=== PATIENT | female | born 1960 | race Caucasian/White ===

== ENCOUNTER 2016-10-29 06:14 | Day surgery (SDC) | payer BC ==
--- NOTE | 2016-10-28 12:05 | HP ---
DATE OF ADMISSION: CHIEF COMPLAINT: Right shoulder pain. 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 She notes she caught her mother while she was falling pulling her right shoulder. She has had pain with overhead use and at night since. She has tried previous multiple injections in addition to therapy and medications with only partial temporary relief. She notes the pain does significantly limit her. PAST MEDICAL HISTORY: Significant for reflux disease and arthritis. PAST SURGICAL HISTORY: Significant for hysterectomy, cholecystectomy. CURRENT MEDICATIONS: 1. Adipex. 2. Albuterol. 3. Ambien. 4. Celebrex. 5. Combivent. 6. Tramadol. She denies drug allergies. FAMILY HISTORY: Significant for cancer. SOCIAL HISTORY: Negative for current tobacco or alcohol use. Sixteen-point review of systems otherwise reviewed and is noncontributory. On examination, the patient is approximately 5 feet 1 inch, 150 pounds of mesomorphic habitus. HEENT exam is nonfocal. Neck is supple. On examination of her right shoulder, she is tender about the anterior subacromial space. Active range of motion, forward elevation 150 degrees, external rotation with the arm at side 60 degrees, internal rotation is to T12. She has mild subacromial crepitus. Motor strength is 5 minus over 5 for abduction and external rotation. Chow, Neer and speed tests are positive. Her distal neurovascular exam appears to be intact in the right upper extremity. AP and scapular outlet views of the right shoulder obtained in the office show a type II acromion in addition to diminished humeral head to acromial distance. MRI report shows evidence of a supraspinatus tendinosis, possible partial-thickness tear in addition to biceps tendinosis and a possible partial thickness tear. Anterior labral cysts were also noted. IMPRESSION: 1. Right shoulder impingement/rotator cuff tendinosis with possible partial-thickness tear. 2. Right shoulder bicipital tendinosis with possible partial tear. RECOMMENDATIONS: I talked to the patient at length regarding her treatment options. At this point, she is quite symptomatic despite conservative measures. After thorough discussion, she opts to proceed with surgery. We will plan to proceed with arthroscopic evaluation with probable subacromial decompression with rotator cuff debridement versus repair in addition to possible biceps debridement. Risks and benefits were discussed at length in layman's terms. We will likely perform that as an outpatient procedure. CLARA
[2016-10-28 12:29] VITALS: BMI 34.0
[~2016-10-29 06:14] MED LIST: DEXAMETHASONE SOD PHOSPHATE 10 MG/ML 1 ML VIAL IV ONE; LACTATED RINGERS 1,000 ML IV SCH; MIDAZOLAM 2 MG/2 ML VIAL IV PRN; ONDANSETRON 4 MG/2 ML VIAL IVP ONE; SCOPOLAMINE 1.5MG/72HR PATCH TRANSDERM ONE; ceFAZolin 2 GM in SODIUM CHLORIDE 0.9% 100 ML IVPB ONE; fentaNYL (PF) 50 MCG/ML 2 ML AMP IV PRN
[2016-10-29 06:32] VITALS: RESP 16
[2016-10-29] MEDS ORDERED: LIDOCAINE 1% 20 ML VIAL (10MG/ML) FOR IV START INTRADERMA ONE (06:32)
[2016-10-29] MEDS ORDERED: LIDOCAINE 1% INJ 10MG/ML (20 ML MDV) ONE (08:02)
[2016-10-29] MEDS ORDERED: MIDAZOLAM 2 MG/2 ML VIAL ONE (08:02)
[2016-10-29] MEDS ORDERED: ROCURONIUM BROMIDE 10 MG/ML 10 ML VIAL IV ONE (08:02)
[2016-10-29] MEDS ORDERED: ePHEDrine 50 MG/ML 1 ML AMP ONE (08:02)
[2016-10-29] MEDS ORDERED: LIDOCAINE 2%-EPI 1:100,000 20 ML VIAL ONE (08:02)
[2016-10-29] MEDS ORDERED: fentaNYL (PF) 50 MCG/ML 2 ML AMP ONE (08:02)
[2016-10-29] MEDS ORDERED: NEOSTIGMINE 1 MG/ML 10 ML VIAL ONE (08:02)
[2016-10-29] MEDS ORDERED: PROPOFOL 10 MG/ML 20 ML VIAL IV ONE (08:02)
[2016-10-29] MEDS ORDERED: GLYCOPYRROLATE 0.2 MG/ML 2 ML VIAL ONE (08:02)
[2016-10-29] MEDS ORDERED: BUPIVACAINE (PF) 0.5% 30 ML VIAL ONE (08:02)
[2016-10-29] MEDS ORDERED: SUCCINYLCHOLINE CHLORIDE 100 MG/5 ML SYR IV ONE (08:02)
[2016-10-29] MEDS ORDERED: EPINEPHrine (PF) 1 ML in SODIUM CHLORIDE 0.9% IRRIGATIO 3,000 ML IRRIGATION ONE ×8 (08:36)
--- NOTE | 2016-10-29 09:11 | P.OP ---
Date of Procedure: 10/29/16 Preoperative Diagnosis: Right shoulder impingement syndrome/rotator cuff tendinitis Postoperative Diagnosis: Partial thickness bursal surface tear right rotator cuff/type I superior labral tear Procedure(s) Performed: Right shoulder arthroscopic subacromial decompression/rotator cuff debridement/ superior labral debridement Anesthesia: rasta ADAMS Surgeon: Chuck Kline Will Call Clerk #1: Francisco Gerard Estimated Blood Loss (ml): 5 Pathology: none sent Condition: stable Disposition: PACU Indications for Procedure: The patient's a 56-year-old female who presents with progressive right shoulder pain for the past couple of years after a previous injury. She did try conservative measures with persistent pain and limitation. A discussion of the risks and benefits of continued conservative measures versus operative intervention was made with the patient. She opted to proceed with surgery. Operative risks to include infection, neurovascular injury, development of blood clots, possible postoperative stiffness, possible persistence of symptoms and need for subsequent procedures was discussed. Informed consent was obtained. Operative Findings: As below Description of Procedure: The patient was brought to the operating room, and after induction of general anesthesia was placed in a beachchair position. The bony prominences were appropriately padded. I examined the right shoulder. There was no gross block to passive motion. There was no gross glenohumeral instability. The right upper extremity was prepped and draped in normal fashion. The bony outlines of the acromion, distal clavicle, and coracoid process were outlined with a skin marker. The glenohumeral joint was inflated with 50 mL of saline utilizing a spinal needle from posterior approach. A posterior portal was made through a 5 mm skin incision 1 cm medial and inferior to the posterior lateral border of the acromion. A blunt trocar was used to easily into the joint. Diagnostic arthroscopy was performed. An anterior portal was made just lateral to the coracoid process through a 5 mm skin incision entering the joint above the subscapularis tendon. The anterior labrum appeared intact. The subscapularis appeared intact. On inspection of the long head of the biceps, there was some mild fraying however no significant tearing. There was a type I tear involving the superior labrum. This was debrided back to stable base with a motorized shaver. The biceps anchor appeared stable. The rotator cuff was inspected from the articular surface. Appeared to be intact. The posterior labrum was intact. The inferior recess was inspected. The arthroscope was placed into the subacromial space. A lateral portal was made through a 5 mm skin incision 2 cm inferior to the anterior lateral border of the acromion. The soft tissue on the undersurface the acromion was debrided with motorized shaver and with electrocautery clearly defining the anterior medial and lateral borders as well as the distal clavicle. An anterior inferior acromioplasty is performed with a motorized dario starting anterolateral, then extending this posteriorly, then extending this medially. Is able to convert to a flat acromion. This is verified from the posterior lateral viewing portals. The coracoacromial ligament was detached from the anterior acromion with electrocautery. On inspection the rotator cuff, a partial thickness tear involving the anterior aspect the supraspinatus was noted. This involved less than 3 mm of the thickness. This was debrided back to stable base with a motorized shaver. Marked bursitis was noted in this was debrided as well. The arthroscope was then removed. The portals were closed with Steri-Strips. A sterile dressing was applied in addition to a shoulder brace. The patient was awoken from general anesthesia and transferred to the recovery room in good condition. Blood loss was estimated at 5 mL. No complications were incurred. Sponge and needle counts were correct at the end the case.
[2016-10-29 09:21] VITALS: TEMP 98.2
[2016-10-29] MEDS ORDERED: LACTATED RINGERS 1,000 ML IV ONE (10:06)
[2016-10-29 11:33] VITALS: BP 141/75; PULSE 72
== END 2016-10-29 12:00 | disposition home or self-care (01) ==
LOC: OR 06:14
PROVIDERS: ATTEND Orthopaedic Surgery
DX: S46.011A Strain of muscle(s) and tendon(s) of the rotator cuff of right shoulder, initial encounter (principal); S43.491A Other sprain of right shoulder joint, initial encounter; X58.XXXA Exposure to other specified factors, initial encounter; Z98.890 Other specified postprocedural states; Z79.899 Other long term (current) drug therapy; Z79.891 Long term (current) use of opiate analgesic
CPT/HCPCS: 64415; 29827; 29826; J2250; J1100; J2710; J0690; J2405; J0171; J2001; J3010; J0330; J2704

== ENCOUNTER → 2017-11-30 | Outpatient (CLI) | payer BC ==
[2017-11-30 10:14] LABS: Basophils % (A) 1 %; Eosinophils # (A) 0.2 k/uL (0-0.7); Eosinophils % (A) 3 %; HCT 42.5 % (34.0-46.0); HGB 14.1 gm/dL (11.4-16.0); Lymphocytes # (A) 1.7 k/uL (1.0-4.8); Lymphocytes % (A) 28 %; MCH 29.6 pg (25.0-35.0); MCHC 33.2 g/dL (31.0-37.0); MCV 89.2 fL (80.0-100.0); Mean Platelet Volume 6.7; Monocytes # (A) 0.2 k/uL (0-1.0); Monocytes % (A) 4 %; Neutrophils # (A) 3.9 k/uL (1.3-7.7); Neutrophils % (A) 63 %; Platelet Count 306 k/uL (150-450); RBC 4.77 m/uL (3.80-5.40); RDW 12.8 % (11.5-15.5); WBC 6.2 k/uL (3.8-10.6)
[2017-11-30 10:45] LABS: C Reactive Protein <5.0 mg/L (<10.0); Uric Acid 5.7 mg/dL (3.7-7.4)
[2017-11-30 11:18] LABS: Erythrocyte Sedimentation Rate 9 mm/hr (0-20)
[2017-11-30 17:40] LABS: Rheumatoid Factor 6 IU/mL (0-15)
[2017-12-02 11:10] LABS: HLA B27 NEGATIVE
== END | disposition home or self-care (01) ==
LOC: LABWHC1 09:26
PROVIDERS: ATTEND Orthopaedic Surgery
DX: M25.50 Pain in unspecified joint (principal)
CPT/HCPCS: 36415; 84550; 85025; 85652; 86038; 86140; 86431; 86812

== ENCOUNTER 2020-05-08 09:15 | Emergency (ER) | payer BC ==
[2020-05-08 09:24] VITALS: RESP 18
[2020-05-08] MEDS ORDERED: SODIUM CHLORIDE 0.9% 2,000 ML IV STA (10:12)
[2020-05-08] MEDS ORDERED: PANTOPRAZOLE 40 MG/10 ML VIAL IVP STA (10:12)
[2020-05-08] MEDS ORDERED: ONDANSETRON 4 MG/2 ML VIAL IVP STA (10:12)
[2020-05-08] MEDS ORDERED: KETOROLAC 15 MG/ML 1 ML VIAL IVP STA (10:14)
[2020-05-08 10:35] LABS: Basophils # (A) 0.1 k/uL (0-0.2); Basophils % (A) 1 %; Eosinophils # (A) 0.1 k/uL (0-0.7); Eosinophils % (A) 1 %; HGB 14.9 gm/dL (11.4-16.0); Lymphocytes # (A) 1.5 k/uL (1.0-4.8); Lymphocytes % (A) 27 %; MCHC 33.1 g/dL (31.0-37.0); MCV 93.4 fL (80.0-100.0); Mean Platelet Volume 7.3; Monocytes # (A) 0.3 k/uL (0-1.0); Monocytes % (A) 5 %; Neutrophils # (A) 3.7 k/uL (1.3-7.7); Neutrophils % (A) 65 %; Platelet Count 309 k/uL (150-450); RBC 4.82 m/uL (3.80-5.40); RDW 12.2 % (11.5-15.5); WBC 5.7 k/uL (3.8-10.6)
--- NOTE | 2020-05-08 10:46 | ED ---
Dizziness HPI - General Chief Complaint: Dizziness Stated Complaint: dizzy/nausea Time Seen by Provider: 05/08/20 09:46 Source: patient, family, RN notes reviewed, old records reviewed Mode of arrival: wheelchair Limitations: no limitations - History of Present Illness Initial Comments: Yudy is a 5-year-old female presents emergency room today with complaints of dizziness, room spinning and lightheadedness and nausea feeling for the past 3 days. She is complaining of some lower left abdominal pain which was related to chronic abdominal pain and hx of diverticulitis. She has poor chronic sided abdominal pain. Patient reports that she has had no recorded fevers or chills. MD Complaint: near syncope - Related Data Home Medications Medication Instructions Recorded Confirmed Bisoprolol-Hctz 10-6.25 mg [Ziac 1 tab PO DAILY 05/08/20 05/08/20 10-6.25 MG] Previous Rx's Medication Instructions Recorded Meclizine [Antivert] 25 mg PO BID #20 tab 05/08/20 Ondansetron Odt [Zofran Odt] 4 mg PO Q8HR PRN #12 tab 05/08/20 methylPREDNISolone Dose Pack 4 mg PO DIRECTED #21 package 05/08/20 [Medrol Dose Pack] Allergies Allergy/AdvReac Type Severity Reaction Status Date / Time morphine AdvReac Nausea & Verified 05/08/20 10:39 Vomiting Review of Systems ROS Statement: Those systems with pertinent positive or pertinent negative responses have been documented in the HPI. ROS Other: All systems not noted in ROS Statement are negative. Past Medical History Past Medical History: GERD/Reflux Additional Past Medical History / Comment(s): IN PAST TOLD HAD HIATAL HERNIA. plantar fascitis, diverticulitis History of Any Multi-Drug Resistant Organisms: None Reported Past Surgical History: Cholecystectomy, Hysterectomy, Tonsillectomy Additional Past Surgical History / Comment(s): REZA FOOT SURG 06/2015. COLONOSCOPY, EGD. Past Anesthesia/Blood Transfusion Reactions: No Reported Reaction Additional Past Anesthesia/Blood Transfusion Reaction / Comment(s): "arm was all bruised from electronic blood pressure machine" Past Psychological History: Anxiety Smoking Status: Never smoker Past Alcohol Use History: Occasional Past Drug Use History: None Reported - Past Family History Sister(s) Family Medical History: Cancer, CVA/TIA Mother Family Medical History: No Reported History General Exam - General Exam Comments Initial Comments: 59-year-old female. Limitations: no limitations General appearance: alert, in no apparent distress Head exam: Present: atraumatic, normocephalic, normal inspection Eye exam: Present: normal appearance, PERRL, EOMI, nystagmus (lateral gaze). Absent: scleral icterus, conjunctival injection, periorbital swelling ENT exam: Present: normal exam, mucous membranes moist Neck exam: Present: normal inspection. Absent: tenderness, meningismus, lymphadenopathy Respiratory exam: Present: normal lung sounds bilaterally. Absent: respiratory distress, wheezes, rales, rhonchi, stridor Cardiovascular Exam: Present: regular rate, normal rhythm, normal heart sounds. Absent: systolic murmur, diastolic murmur, rubs, gallop, clicks GI/Abdominal exam: Present: soft, tenderness (Tenderness or left-sided), normal bowel sounds. Absent: distended, guarding, rebound, rigid Extremities exam: Present: normal inspection, full ROM, normal capillary refill. Absent: tenderness, pedal edema, joint swelling, calf tenderness Back exam: Present: normal inspection Neurological exam: Present: alert, oriented X3, CN II-XII intact Psychiatric exam: Present: normal affect, normal mood Skin exam: Present: warm, dry, intact, normal color. Absent: rash Course Vital Signs 05/08/20 05/08/20 05/08/20 09:19 11:18 13:27 Temperature 98.3 F 98.1 F 98.4 F Pulse Rate 64 90 60 Respiratory 18 18 18 Rate Blood Pressure 181/74 169/75 151/73 O2 Sat by Pulse 99 98 99 Oximetry EKG Findings - EKG Comments: EKG Findings:: EKG shows normal sinus rhythm and will schedule for LVH. Cannot really transferred to determine. Abnormal EKG. Jugular rate of 60 bpm. Was 160 ms. She orthodox is 78 ms. QTC is 424 ms. Medical Decision Making - Medical Decision Making 5-year-old female presents emergency room today with complaints of dizziness, lightheaded feeling as well as her arms spinning. She also points of nausea. Patient is given IV fluids and nausea medication meclizine. She had a history of vertigo before. Patient had CT of the brain which showed low finding of low- lying cerebellar tonsils possible Chiari malformation. Discussed is to be acute cause of patient's vertigo. Discussed the importance of Lourdes maneuver and that her labs EKG were otherwise unremarkable. Patient be discharged at this time with nausea medicine Nadeem is able to ambulate without difficulty upon discharge. - Lab Data Result diagrams: 05/08/20 10:16 05/08/20 10:16 Lab Results 05/08/20 05/08/20 05/08/20 Range/Units 10:16 10:16 10:16 WBC 5.7 (3.8-10.6) k/uL RBC 4.82 (3.80-5.40) m/uL Hgb 14.9 (11.4-16.0) gm/dL Hct 45.0 (34.0-46.0) % MCV 93.4 (80.0-100.0) fL MCH 31.0 (25.0-35.0) pg MCHC 33.1 (31.0-37.0) g/dL RDW 12.2 (11.5-15.5) % Plt Count 309 (150-450) k/uL Neutrophils % 65 % Lymphocytes % 27 % Monocytes % 5 % Eosinophils % 1 % Basophils % 1 % Neutrophils # 3.7 (1.3-7.7) k/uL Lymphocytes # 1.5 (1.0-4.8) k/uL Monocytes # 0.3 (0-1.0) k/uL Eosinophils # 0.1 (0-0.7) k/uL Basophils # 0.1 (0-0.2) k/uL APTT (22.0-30.0) sec Sodium 140 (137-145) mmol/L Potassium 4.4 (3.5-5.1) mmol/L Chloride 103 (98-107) mmol/L Carbon Dioxide 27 (22-30) mmol/L Anion Gap 10 mmol/L BUN 19 H (7-17) mg/dL Creatinine 0.86 (0.52-1.04) mg/dL Est GFR (CKD-EPI)AfAm 86 (>60 ml/min/1.73 sqM) Est GFR (CKD-EPI)NonAf 74 (>60 ml/min/1.73 sqM) Glucose 114 H (74-99) mg/dL Plasma Lactic Acid Lisandro (0.7-2.0) mmol/L Calcium 9.8 (8.4-10.2) mg/dL Total Bilirubin 0.7 (0.2-1.3) mg/dL AST 25 (14-36) U/L ALT 15 (4-34) U/L Alkaline Phosphatase 79 (38-126) U/L Troponin I (0.000-0.034) ng/mL Total Protein 7.9 (6.3-8.2) g/dL Albumin 4.9 (3.5-5.0) g/dL Amylase 52 (30-110) U/L Lipase 68 (23-300) U/L Urine Color Yellow Urine Appearance Cloudy H (Clear) Urine pH 6.5 (5.0-8.0) Ur Specific Tok 1.026 (1.001-1.035) Urine Protein Trace H (Negative) Urine Glucose (UA) Negative (Negative) Urine Ketones 1+ H (Negative) Urine Blood Negative (Negative) Urine Nitrite Negative (Negative) Urine Bilirubin Negative (Negative) Urine Urobilinogen <2.0 (<2.0) mg/dL Ur Leukocyte Esterase Large H (Negative) Urine RBC 2 (0-5) /hpf Urine WBC 15 H (0-5) /hpf Ur Squamous Epith Cells 8 H (0-4) /hpf Urine Bacteria Rare H (None) /hpf Urine Mucus Moderate H (None) /hpf 05/08/20 05/08/20 05/08/20 Range/Units 10:16 10:16 10:16 WBC (3.8-10.6) k/uL RBC (3.80-5.40) m/uL Hgb (11.4-16.0) gm/dL Hct (34.0-46.0) % MCV (80.0-100.0) fL MCH (25.0-35.0) pg MCHC (31.0-37.0) g/dL RDW (11.5-15.5) % Plt Count (150-450) k/uL Neutrophils % % Lymphocytes % % Monocytes % % Eosinophils % % Basophils % % Neutrophils # (1.3-7.7) k/uL Lymphocytes # (1.0-4.8) k/uL Monocytes # (0-1.0) k/uL Eosinophils # (0-0.7) k/uL Basophils # (0-0.2) k/uL APTT 25.1 (22.0-30.0) sec Sodium (137-145) mmol/L Potassium (3.5-5.1) mmol/L Chloride (98-107) mmol/L Carbon Dioxide (22-30) mmol/L Anion Gap mmol/L BUN (7-17) mg/dL Creatinine (0.52-1.04) mg/dL Est GFR (CKD-EPI)AfAm (>60 ml/min/1.73 sqM) Est GFR (CKD-EPI)NonAf (>60 ml/min/1.73 sqM) Glucose (74-99) mg/dL Plasma Lactic Acid Lisandro 1.5 (0.7-2.0) mmol/L Calcium (8.4-10.2) mg/dL Total Bilirubin (0.2-1.3) mg/dL AST (14-36) U/L ALT (4-34) U/L Alkaline Phosphatase (38-126) U/L Troponin I <0.012 (0.000-0.034) ng/mL Total Protein (6.3-8.2) g/dL Albumin (3.5-5.0) g/dL Amylase (30-110) U/L Lipase (23-300) U/L Urine Color Urine Appearance (Clear) Urine pH (5.0-8.0) Ur Specific Tok (1.001-1.035) Urine Protein (Negative) Urine Glucose (UA) (Negative) Urine Ketones (Negative) Urine Blood (Negative) Urine Nitrite (Negative) Urine Bilirubin (Negative) Urine Urobilinogen (<2.0) mg/dL Ur Leukocyte Esterase (Negative) Urine RBC (0-5) /hpf Urine WBC (0-5) /hpf Ur Squamous Epith Cells (0-4) /hpf Urine Bacteria (None) /hpf Urine Mucus (None) /hpf - Radiology Data Radiology results: report reviewed 4.5 mm right-sided cerebellar tonsillar ectopic as indeterminate between benign cerebellar tonsils are top area and Chiari I Curtis Patient. It would require further clinical correlation. No acute intracranial abnormality seen. Disposition Clinical Impression: Dizziness, Nausea, Vertigo Disposition: HOME SELF-CARE Condition: Good Instructions (If sedation given, give patient instructions): Vertigo (ED), Dizziness (ED) Additional Instructions: Please use medication as discussed. Please follow up with family doctor if symptoms have not improved over the next two days. Please return to the emergency room if your symptoms increase or worsen or for any other concerns. Prescriptions: Meclizine [Antivert] 25 mg PO BID #20 tab methylPREDNISolone Dose Pack [Medrol Dose Pack] 4 mg PO DIRECTED #21 package Ondansetron Odt [Zofran Odt] 4 mg PO Q8HR PRN #12 tab PRN Reason: Nausea Is patient prescribed a controlled substance at d/c from ED?: No Referrals: Dre Cm MD [Primary Care Provider] - 1-2 days Time of Disposition: 13:16
[2020-05-08 10:48] LABS: Albumin 4.9 g/dL (3.5-5.0); Calcium 9.8 mg/dL (8.4-10.2); Potassium 4.4 mmol/L (3.5-5.1); Total Bilirubin 0.7 mg/dL (0.2-1.3); Total Protein 7.9 g/dL (6.3-8.2)
[2020-05-08 10:51] LABS: Appearance,Urine Cloudy (Clear); Bacteria,Urine Rare /hpf; Bilirubin,Urine Negative (Negative); Blood,Urine Negative (Negative); Color,Urine Yellow; Glucose,Urine (UA) Negative (Negative); Ketones,Urine 1+ (Negative); Leukocyte Esterase,Urine Large (Negative); Mucus,Urine Moderate /hpf; Nitrite,Urine Negative (Negative); PH, Urine 6.5 (5.0-8.0); Protein,Urine Trace (Negative); RBC,Urine 2 /hpf (0-5); Specific Gravity,Urine 1.026 (1.001-1.035); Squamous Epithelial Cell,Urine 8 /hpf (0-4); Urobilinogen,Urine <2.0 mg/dL (<2.0); WBC,Urine 15 /hpf (0-5)
--- NOTE | 2020-05-08 11:01 | XR ---
EXAMINATION TYPE: XR chest 2V DATE OF EXAM: 05/08/2020 COMPARISON: 08/02/2011 HISTORY: 59-year-old female with abdominal pain and dizziness TECHNIQUE: PA and lateral views FINDINGS: The cardiomediastinal silhouette, aorta, and pulmonary vasculature are within normal limits. No conso lidation or pleural effusion. IMPRESSION: No acute cardiopulmonary process.
--- NOTE | 2020-05-08 11:02 | XR ---
EXAMINATION TYPE: XR KUB DATE OF EXAM: 05/08/2020 Comparison: None Clinical History: 59-year-old female abdominal pain Findings: Scattered colonic air extending distally to the rectum. No significant stool burden. No dilated small bowel or air-fluid levels. No evidence for free intraperitoneal air. No definite suspicious calcifications. Impression: No evidence for bowel obstruction or free air. No significant stool burden.
[2020-05-08] MEDS ORDERED: MECLIZINE 12.5 MG TAB PO STA (11:44)
[2020-05-08] MEDS ORDERED: SODIUM CHLORIDE 0.9% 1,000 ML IV SCH (11:45)
--- NOTE | 2020-05-08 12:19 | CT ---
EXAMINATION TYPE: CT brain wo con DATE OF EXAM: 05/08/2020 COMPARISON: None HISTORY: 59-year-old female Dizziness with weakness. TECHNIQUE: Examination was done in axial plane without intravenous contrast. Coronal and sagittal r econstructions performed. CT DLP: 2323.4 mGycm Automated exposure control for dose reduction was used. FINDINGS: There is no evidence of acute intracranial hemorrhage, acute ischemic changes, mass, mass-effect, or extra-axial fluid collection. There is no effacement of cerebral sulci or basal subarachnoid cister ns. There is no hydrocephalus. There is no midline shift. Krause-white matter distinction is preserv ed. Partially empty sella. 4.5 mm of right-sided cerebellar tonsillar ectopia, sagittal image 46. Mild at herosclerotic arch calcifications. Paranasal sinuses and mastoid air cells well pneumatized. Orbits and globes are intact. IMPRESSION: 1. 4.5 mm of right-sided cerebellar tonsillar ectopia is indeterminate between benign cerebellar tons illar ectopia and Chiari I malformation. It would require further clinical correlation. 2. No acute intracranial abnormality seen.
[2020-05-08 13:28] VITALS: BP 151/73; PULSE 60; TEMP 98.4
== END 2020-05-08 14:11 | disposition home or self-care (01) ==
LOC: EC 09:15
DX: R42 Dizziness and giddiness (principal); R11.0 Nausea; Z79.899 Other long term (current) drug therapy; Z88.5 Allergy status to narcotic agent; Z90.49 Acquired absence of other specified parts of digestive tract; Z90.710 Acquired absence of both cervix and uterus
CPT/HCPCS: 36415; 93005; 80053; 82150; 83605; 83690; 84484; 85025; 85730; 81001; 87086; 71046; 74018; 70450; 99285; 96374; 96375 ×2; 96361 ×2; J2405; J1885; C9113

== ENCOUNTER → 2020-06-06 | Outpatient (CLI) | payer BC ==
--- NOTE | 2020-06-06 13:17 | US ---
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 dizziness, no stroke history EXAM MEASUREMENTS: RIGHT: Peak Systolic Velocity (PSV) cm/sec ----- Right CCA: 83.1 ----- Right ICA: 96.5 ----- Right ECA: 101.5 ICA/CCA ratio: 1.2 RIGHT: End Diastole cm/sec ----- Right CCA: 22.9 ----- Right ICA: 36.3 ----- Right ECA: 10.2 LEFT: Peak Systolic Velocity (PSV) cm/sec ----- Left CCA: 94.8 ----- Left ICA: 100.7 ----- Left ECA: 78.8 ICA/CCA ratio: 1.1 LEFT: End Diastole cm/sec ----- Left CCA: 23.2 ----- Left ICA: 35.9 ----- Left ECA: 14.2 VERTEBRALS (direction of flow): Right Vertebral: Antegrade Left Vertebral: Antegrade Rhythm: Normal Mild homogeneous plaque seen with no significant stenosis IMPRESSION: No evidence for hemodynamically significant stenosis Criteria for Assigning % of Stenosis / Diameter reduction (Estimation based on the indirect measurements of the internal carotid artery velocities (ICA PSV). 1. Normal (no stenosis)=ICA PSV < 125 cm/s: ratio < 2.0: ICA EDV<40 cm/s. 2. Less than 50% stenosis=ICA PSV < 125 cm/s: ratio < 2.0: ICA EDV<40 cm/s. 3. 50 to 69% stenosis=ICA PSV of 125 to 230 cm/s: ration 2.0 ? 4.0: ICA EDV 40-100 cm/s. 4. Greater than 70% stenosis to near occlusion= ICA PSV > 230 cm/s: ratio > 4.0: ICA EDV > 100 cm/s. 5. Near occlusion= ICA PSV velocities may be low or undetectable: variable ratio and ICA EDV. 6. Total occlusion=unable to detect flow.
--- NOTE | 2020-06-06 13:58 | ECHOF ---
Referral Reason:Q07.00 Arnold-Chiari syndrome without spina bifida MEASUREMENTS -------- HEIGHT: 154.9 cm WEIGHT: 86.2 kg BP: IVSd: 1.2 cm (0.6 - 1.1) LVIDd: 4.3 cm (3.9 - 5.3) LVPWd: 1.1 cm (0.6 - 1.1) EDV(Teich): 84 ml IVSs: 1.6 cm LVIDs: 1.5 cm LVPWs: 1.8 cm %IVS Thck: 34 % ESV(Teich): 6 ml EF(Teich): 92 % %FS: 64 % SV(Teich): 77 ml IVC: 16.74 mm LALs A4C: 5.1 cm LAAs A4C: 15.3 cm LAESV A-L A4C: 39 ml LAESV MOD A4C: 37 ml LALs A2C: 5.1 cm LAAs A2C: 16.5 cm LAESV A-L A2C: 45 ml LAESV MOD A2C: 43 ml LAESV(A-L): 42 ml LAESV Index (A-L): 22.73 ml/m Ao Diam: 2.9 cm (2.0 - 3.7) LA Diam: 3.3 cm (2.7 - 3.8) AV Cusp: 1.9 cm (1.5 - 2.6) EPSS: 0.5 cm MV E Kaleb: 0.89 m/s MV DecT: 172 ms MV Dec Tripp: 5.2 m/s MV A Kaleb: 0.65 m/s MV E/A Ratio: 1.37 MV PHT: 50 ms MR Vmax: 1.68 m/s MR maxP.30 mmHg AV Vmax: 1.10 m/s AV maxP.86 mmHg TR Vmax: 1.39 m/s TR maxP.70 mmHg RAP: 5.00 mmHg RVSP: 12.70 mmHg MV EF SLOPE: 103.17 mm/s (70 - 150) MV EXCURSION: 14.92 mm (> 18.000) FINDINGS -------- Sinus rhythm. This was a technically adequate study. The left ventricular size is normal. There is mild concentric left ventricular hypertrophy. Overa ll left ventricular systolic function is normal with, an EF between 55 - 60 %. The diastolic fillin g pattern is normal for the age of the patient 12.14. The right ventricle is normal in size. Normal LA size by volume 22+/-6 ml/m2. The right atrial size is normal. The aortic valve is trileaflet, and appears structurally normal. No aortic stenosis or regurgitation. The mitral valve is normal. There is trace mitral regurgitation. The tricuspid valve appears structurally normal. Trace tricuspid regurgitation present. Right tala tricular systolic pressure is normal at < 35 mmHg. There is no pulmonic regurgitation present. The aortic root size is normal. Normal inferior vena cava with normal inspiratory collapse consistent with estimated right atrial pre ssure of 5 mmHg. There is no pericardial effusion. CONCLUSIONS -------- 1. There is mild concentric left ventricular hypertrophy. 2. Overall left ventricular systolic function is normal with, an EF between 55 - 60 %. 3. The diastolic filling pattern is normal for the age of the patient 12.14 4. Normal LA size by volume 22+/-6 ml/m2. 5. The aortic valve is trileaflet, and appears structurally normal. No aortic stenosis or regurgitati on. 6. There is trace mitral regurgitation. 7. Trace tricuspid regurgitation present. 8. There is no pericardial effusion. [facility] ATTENDANT: Estephanie Senior RDCS
--- NOTE | 2020-06-06 14:27 | MR ---
EXAMINATION TYPE: MR brain wo con DATE OF EXAM: 06/06/2020 1:46 PM COMPARISON: NONE HISTORY: Dizziness, TIA, Arnold-Chiari syndrome without spina bifida FINDINGS: The ventricles, basal cisterns and sulci overlying the cerebral convexities are mildly enlarged. There is evidence of mild periventricular white matter ischemic demyelination. Tiny remote insult rig ht iglesia. Remote deep white matter insults are also noted. No acute edema is seen on diffusion weighted imaging. There is no evidence for midline shift or mass effect. Acute intracranial hemorrhage or extra-axial collection is not evident. The paranasal sinuses and mastoid air cells are well-aerated. IMPRESSION: Age-related atrophic and chronic small vessel ischemic change. No acute intracranial process at this time.
== END | disposition home or self-care (01) ==
LOC: RADECHMAIN 12:11
PROVIDERS: ATTEND Family Medicine
DX: I51.7 Cardiomegaly (principal); G31.1 Senile degeneration of brain, not elsewhere classified; I67.82 Cerebral ischemia; G45.9 Transient cerebral ischemic attack, unspecified
CPT/HCPCS: 70551; 93306; 93880

== ENCOUNTER 2023-01-26 10:27 | Day surgery (SDC) | payer BC ==
[~2023-01-26 10:27] MED LIST changes: -DEXAMETHASONE SOD PHOSPHATE 10 MG/ML 1 ML VIAL IV ONE; +LIDOCAINE 1% (10MG/ML) FOR IV START INTRADERMA PRN; -MIDAZOLAM 2 MG/2 ML VIAL IV PRN; -ONDANSETRON 4 MG/2 ML VIAL IVP ONE; +ONDANSETRON 4 MG/2 ML VIAL IVP PRN; -SCOPOLAMINE 1.5MG/72HR PATCH TRANSDERM ONE; -ceFAZolin 2 GM in SODIUM CHLORIDE 0.9% 100 ML IVPB ONE; -fentaNYL (PF) 50 MCG/ML 2 ML AMP IV PRN
[2023-01-26 11:04] VITALS: TEMP 98.4
[2023-01-26] MEDS ORDERED: PROPOFOL 10 MG/ML 20 ML VIAL IV ONE (11:40)
[2023-01-26] MEDS ORDERED: LIDOCAINE 2% INJ 20 MG/ML (2 ML VIAL) ONE (11:40)
--- NOTE | 2023-01-26 11:46 | P.GSHP ---
History of Present Illness H&P Date: 01/26/23 CHIEF COMPLAINT: Colon screen HISTORY OF PRESENT ILLNESS: The patient is a 62-year-old female who presents for colon screen. Lower endoscopy was offered for further evaluation and management. PAST MEDICAL HISTORY: Please see list. PAST SURGICAL HISTORY: Please see list. MEDICATIONS: Please see list. ALLERGIES: Please see list. SOCIAL HISTORY: No illicit drug use FAMILY HISTORY: No reports of Crohn disease or ulcerative colitis. REVIEW OF ORGAN SYSTEMS: CONSTITUTIONAL: No reports of fevers or chills. PHYSICAL EXAM: VITAL SIGNS: Stable GENERAL: Well-developed pleasant in no acute distress. HEENT: No scleral icterus. Extraocular movements grossly intact. Moist buccal mucosa. NECK: Supple without lymphadenopathy. CHEST: Unlabored respirations. Equal bilateral excursions. CARDIOVASCULAR: Regular rate and rhythm. Distal 2+ pulses. ABDOMEN: Soft, nontender, nondistended. MUSCULOSKELETAL: No clubbing, cyanosis, or edema. ASSESSMENT: 1. Colon screen. PLAN: 1. Recommend proceeding with a lower endoscopy Past Medical History Past Medical History: Hypertension Additional Past Medical History / Comment(s): Pt thinks possible hemorrhoid/small amount bleeding. Diverticulitis, migraines. History of Any Multi-Drug Resistant Organisms: None Reported Past Surgical History: Cholecystectomy, Hysterectomy, Tonsillectomy Additional Past Surgical History / Comment(s): REZA FOOT SURG 06/2015. COLONOSCOPY, EGD, Giovanna fundoplasty. Past Anesthesia/Blood Transfusion Reactions: No Reported Reaction Additional Past Anesthesia/Blood Transfusion Reaction / Comment(s): Pt has never received blood. Smoking Status: Never smoker - Past Family History Sister(s) Family Medical History: Cancer, CVA/TIA Mother Family Medical History: No Reported History Medications and Allergies Home Medications Medication Instructions Recorded Confirmed Type Bisoprolol-Hctz 10-6.25 mg [Ziac 1 tab PO QAM 05/08/20 01/26/23 History 10-6.25 MG] Acetaminophen Tab [Tylenol] 325 mg PO Q4H PRN 01/21/23 01/26/23 History Allergies Allergy/AdvReac Type Severity Reaction Status Date / Time morphine AdvReac Nausea & Verified 01/26/23 11:00 Vomiting Surgical - Exam Vital Signs Temp Pulse Resp BP Pulse Ox 98.4 F 57 L 18 205/84 99 01/26/23 11:01 01/26/23 11:01 01/26/23 11:01 01/26/23 11:01 01/26/23 11:01
--- NOTE | 2023-01-26 12:04 | P.PCN ---
Date of Procedure: 01/26/23 Description of Procedure: PREOPERATIVE DIAGNOSIS: Colonoscopy screening. POSTOPERATIVE DIAGNOSIS: Colonoscopy screening. Severe sigmoid diverticulosis with redundancy Under achieved colon polyp, mid transverse colon OPERATION: Colonoscopy to the cecum, ileocecal valve and appendiceal orifice. SURGEON: Maria Guadalupe Murillo MD. ANESTHESIA: MAC. INDICATIONS: The patient is a 62-year-old female who presents for colonoscopy screening. Benefits and risks were described and informed consent was obtained. DESCRIPTION OF PROCEDURE: The patient had undergone Sutab prep. The patient had been brought into the operating room and laid in the left lateral decubitus position. After adequate intravenous sedation, the rectum was examined with 2% lidocaine jelly. No external hemorrhoids were encountered. The rectal tone was within normal limits. No lesions were palpated in the rectal vault. An Olympus colonoscope was advanced until the cecum, ileocecal valve and appendiceal orifice were clearly viewed. The prep was far stool covering potential polyps. Severe scattered diverticulosis was encountered. Abdominal pressure was used. No evidence of focal colitis was found. Retroflexion of the scope demonstrated grade 2 internal hemorrhoids without active bleeding or inflammation. The colon was desufflated. The patient had tolerated the procedure well. Withdrawal time was over 6 minutes. FINDINGS: Aronchick preparation quality scale 3 (1-5) Internal hemorrhoids, grade 2 External prolapsed hemorrhoids, grade 3 Unretrieved transverse colon polyp, 4 mm No arteriovenous malformations. Severe sigmoid diverticulosis with redundancy requiring abdominal wall pressure No focal colitis. RECOMMENDATIONS: Repeat colonoscopy 3 years, 2025 with 2 day prep Plan - Discharge Summary Discharge Rx Participant: No New Discharge Prescriptions: Continue Bisoprolol-Hctz 10-6.25 mg [Ziac 10-6.25 MG] 1 tab PO QAM Acetaminophen Tab [Tylenol] 325 mg PO Q4H PRN PRN Reason: Pain Discharge Medication List Bisoprolol-Hctz 10-6.25 mg [Ziac 10-6.25 MG] 1 tab PO QAM 05/08/20 [History] Acetaminophen Tab [Tylenol] 325 mg PO Q4H PRN 01/21/23 [History] Follow up Appointment(s)/Referral(s): Maria Guadalupe Murillo MD [STAFF PHYSICIAN] - As Needed Patient Instructions/Handouts: Diverticulosis Diet (GEN), Diverticulosis (DC), Colorectal Polyps (GEN) Activity/Diet/Wound Care/Special Instructions: Repeat colonoscopy 3 years, 2025 Discharge Disposition: HOME SELF-CARE
[2023-01-26 12:09] VITALS: RESP 16
[2023-01-26 12:41] VITALS: BP 163/78; PULSE 48
== END 2023-01-26 12:52 | disposition home or self-care (01) ==
LOC: ORWHC2ENDO 10:27
PROVIDERS: ATTEND Surgery Plastic and Reconstructive Surgery
DX: Z12.11 Encounter for screening for malignant neoplasm of colon (principal); K57.30 Diverticulosis of large intestine without perforation or abscess without bleeding; K63.5 Polyp of colon; K62.1 Rectal polyp; I10 Essential (primary) hypertension; Z90.710 Acquired absence of both cervix and uterus; Z90.89 Acquired absence of other organs; Z90.49 Acquired absence of other specified parts of digestive tract; Z82.3 Family history of stroke; Z88.5 Allergy status to narcotic agent; Z79.899 Other long term (current) drug therapy
CPT/HCPCS: 45378; J2704; J2001

== ENCOUNTER → 2023-03-24 | Outpatient (CLI) | payer BC ==
[2023-03-24 15:12] LABS: ALT 17 U/L (8-44); AST 17 U/L (13-35); BUN/Creat Ratio 20.88 Ratio (12.00-20.00); Blood Urea Nitrogen 16.7 mg/dL (9.0-27.0); Calcium 9.7 mg/dL (8.7-10.3); Carbon Dioxide 27.6 mmol/L (21.6-31.8); Chloride 102 mmol/L (96-109); Chol/HDL Ratio 4.04 Ratio; Glucose 99 mg/dL (70-110); LDL Cholesterol,Calculated 142.1 mg/dL (0.0-131.0); Potassium 4.4 mmol/L (3.5-5.5); Sodium 141 mmol/L (135-145)
[2023-03-24 16:00] LABS: HCT 40.8 % (37.2-46.3); HGB 12.9 d/dL (12.0-15.0); MCH 29.7 pg (27.0-32.0); MCHC 31.6 d/dL (32.0-37.0); MCV 93.8 FL (80.0-97.0); Mean Platelet Volume 10.7 FL (9.5-12.2); NRBC Per 100 WBC 0 X 10*3/uL (0.00-0.01); Platelet Count 308 X 10*3/uL (140-440); RBC 4.35 X 10*6/uL (4.10-5.20); RDW 12.6 % (11.5-14.5); WBC 5.62 X 10*3/uL (4.50-10.00)
== END | disposition home or self-care (01) ==
LOC: LABWHC1 09:59
PROVIDERS: ATTEND Internal Medicine Cardiovascular Disease
DX: I10 Essential (primary) hypertension (principal); E78.2 Mixed hyperlipidemia
CPT/HCPCS: 36415; 80048; 80061; 84443; 84450; 84460; 85027

== ENCOUNTER 2023-06-30 06:52 | Inpatient (IN) | payer BC ==
[2023-06-28 13:14] VITALS: BMI 37.8
[2023-06-30] MEDS ORDERED: LIDOCAINE 1% (10MG/ML) FOR IV START INTRADERMA PRN (07:13)
[2023-06-30] MEDS: LACTATED RINGERS 1,000 ML IV SCH (07:32)
--- NOTE | 2023-06-30 08:00 | P.GSHP ---
History of Present Illness H&P Date: 06/30/23 CHIEF COMPLAINT: Sigmoid diverticulitis HISTORY OF PRESENT ILLNESS: The patient is a 62-year-old female with long- standing history of chronic constipation including large bowel obstruction secondary to sigmoid diverticulosis. Reports symptoms are worsening hence presentation for surgical assessment. PAST MEDICAL HISTORY: Please see list. PAST SURGICAL HISTORY: Please see list. MEDICATIONS: Please see list. ALLERGIES: Please see list. SOCIAL HISTORY: No illicit drug use FAMILY HISTORY: No reports of Crohn disease or ulcerative colitis. REVIEW OF ORGAN SYSTEMS: CONSTITUTIONAL: Denies any fever or chills. HEENT: Denies any trouble with vision or nosebleeds. No difficulty swallowing. LYMPHATIC: The patient denies any lumps and bumps around the neck. ENDOCRINE: Denies any thyroid disorders. RESPIRATORY: Denies pneumonia. Denies any troubles with breathing or dyspnea on exertion. CARDIOVASCULAR: Denies any chest pain, palpitations, or recent heart attacks GASTROINTESTINAL: Has gastroesophageal reflux disease GENITOURINARY: No blood in urine. MUSCULOSKELETAL: Has back pain, stiffness, joint arthritis. NEUROLOGIC: Denies any numbness or tingling along the distal extremities. No seizure disorders or headaches. PSYCHIATRIC: Denies depression or suidical ideation. HEMATOLOGIC: Denies any abnormal bleeding or bruising. PHYSICAL EXAM: VITAL SIGNS: Stable GENERAL: Well-developed pleasant in no acute distress. HEENT: No scleral icterus. Extraocular movements grossly intact. Moist buccal mucosa. NECK: Supple without lymphadenopathy. CHEST: Unlabored respirations. Equal bilateral excursions. CARDIOVASCULAR: Regular rate and rhythm. Distal 2+ pulses. ABDOMEN: Soft, nontender, nondistended. MUSCULOSKELETAL: No clubbing, cyanosis, or edema. NERUO: Cranial nerves II through XII grossly intact PSYCH: Alert and oriented to person place and time. ASSESSMENT: 1. Sigmoid diverticulosis 2. Sigmoid volvulus. PLAN: 1. Benefits and risks of surgical intervention particular sigmoid volvulus and diverticulosis reviewed in detail. Robotic-assisted approach was also described for lower anterior resection and sigmoid colectomy. 2. She has completed an enhanced colon recovery program. 3. DVT prophylaxis. 4. Antibiotic prophylaxis. 5. Colonoscopy for tattooing. Past Medical History Past Medical History: Hypertension Additional Past Medical History / Comment(s): Diverticulitis, migraines History of Any Multi-Drug Resistant Organisms: None Reported Past Surgical History: Cholecystectomy, Hysterectomy, Orthopedic Surgery, Tonsillectomy Additional Past Surgical History / Comment(s): REZA FOOT SURG 06/2015, Giovanna fundoplasty Past Anesthesia/Blood Transfusion Reactions: No Reported Reaction Additional Past Anesthesia/Blood Transfusion Reaction / Comment(s): Pt has never received blood. Past Psychological History: Anxiety Additional Psychological History / Comment(s): . Smoking Status: Never smoker Past Alcohol Use History: None Reported Past Drug Use History: None Reported - Past Family History Sister(s) Family Medical History: Cancer, CVA/TIA Mother Family Medical History: No Reported History Medications and Allergies Home Medications Medication Instructions Recorded Confirmed Type Bisoprolol-Hctz 10-6.25 mg [Ziac 1 tab PO QAM 05/08/20 06/30/23 History 10-6.25 MG] Allergies Allergy/AdvReac Type Severity Reaction Status Date / Time morphine AdvReac Nausea & Verified 06/30/23 07:24 Vomiting Surgical - Exam Vital Signs Temp Pulse Resp BP Pulse Ox 98.0 F 66 16 157/72 99 06/30/23 07:16 06/30/23 07:16 06/30/23 07:16 06/30/23 07:16 06/30/23 07:16
[2023-06-30] MEDS ORDERED: PROPOFOL 10 MG/ML 20 ML VIAL IV ONE (08:01)
[2023-06-30] MEDS ORDERED: LIDOCAINE 1% INJ 10MG/ML (20 ML MDV) ONE (08:01)
[2023-06-30] MEDS ORDERED: Antibiotics per Pharmacy 1 EACH MISC MISCELLANE PRN (08:01)
[2023-06-30] MEDS ORDERED: SODIUM CHLORIDE 0.9% 2,000 ML IV ONE (08:01)
--- NOTE | 2023-06-30 08:26 | P.PCN ---
Date of Procedure: 06/30/23 Description of Procedure: PREOPERATIVE DIAGNOSIS: Diverticulosis with chronic diverticulitis POSTOPERATIVE DIAGNOSIS: Severe sigmoid diverticulosis Pandiverticulosis OPERATION: Colonoscopy to the cecum, ileocecal valve and appendiceal orifice. SURGEON: Maria Guadalupe Murillo MD. ANESTHESIA: MAC. INDICATIONS: The patient is a 62-year-old female who presents for change in bowel habits worsening abdominal pain due to diverticulosis and diverticulitis. Benefits and risks were described and informed consent was obtained. DESCRIPTION OF PROCEDURE: The patient had undergone Sutab prep. The patient had been brought into the operating room and laid in the left lateral decubitus position. After adequate i ntravenous sedation, the rectum was examined with 2% lidocaine jelly. External hemorrhoids were encountered. The rectal tone was within normal limits. No lesions were palpated in the rectal vault. An Olympus colonoscope was advanced until the cecum, ileocecal valve and appendiceal orifice were clearly viewed. The prep was excellent. Severe sigmoid diverticulosis with global diverticulosis was encountered. No colonic polyps were found. No evidence of focal colitis was found. Retroflexion of the scope demonstrated grade 1 internal hemorrhoids without active bleeding or inflammation. The colon was desufflated. The patient had tolerated the procedure well. Withdrawal time was over 6 minutes. FINDINGS: Aronchick preparation quality scale 1 (1-5) Internal hemorrhoids, grade 3 External prolapsed hemorrhoids, grade 3 No arteriovenous malformations. Severe sigmoid diverticulosis with global diverticulosis No adenomatous polyps. No focal colitis. RECOMMENDATIONS: Sigmoid resection described for chronic diverticulitis. Admission advised
[2023-06-30] MEDS ORDERED: SODIUM CHLORIDE 0.9% 1,000 ML IV ONE (09:10)
[2023-06-30] MEDS ORDERED: PEG 3350 (420 GM/BTL) + LYTES 4,000 ML BOTTLE PO ONE (10:00)
[2023-06-30] MEDS: BISOPROLOL-HCTZ 10-6.25 MG 1 EACH TAB PO SCH (10:44)
[2023-06-30 11:25] LABS: Basophils % (A) 1 %; Eosinophils # (A) 0.1 k/uL (0-0.7); Eosinophils % (A) 2 %; HCT 36.5 % (34.0-46.0); HGB 12.6 gm/dL (11.4-16.0); Lymphocytes # (A) 1.7 k/uL (1.0-4.8); Lymphocytes % (A) 33 %; MCH 31.8 pg (25.0-35.0); MCHC 34.6 g/dL (31.0-37.0); Mean Platelet Volume 7.5; Monocytes # (A) 0.3 k/uL (0-1.0); Monocytes % (A) 5 %; Neutrophils # (A) 3.1 k/uL (1.3-7.7); Neutrophils % (A) 59 %; Platelet Count 271 k/uL (150-450); RBC 3.97 m/uL (3.80-5.40); RDW 12.3 % (11.5-15.5); WBC 5.3 k/uL (3.8-10.6)
[2023-06-30] MEDS: D5-0.45% NACL WITH KCL 20MEQ/L 1,000 ML IV SCH ×2 (11:41→21:22)
[2023-06-30 11:42] LABS: ALT 15 U/L (4-34); AST 23 U/L (14-36); African American GFR (CKD) >90 (>60 ml/min/1.73 sqM); Albumin 3.8 g/dL (3.5-5.0); Albumin/Globulin Ratio 1.7; Alkaline Phosphatase 67 U/L (38-126); Anion Gap 10 mmol/L; Blood Urea Nitrogen 15 mg/dL (7-17); Calcium 8.7 mg/dL (8.4-10.2); Carbon Dioxide 26 mmol/L (22-30); Chloride 107 mmol/L (98-107); Globulin 2.3 g/dL; Glucose 92 mg/dL (74-99); Non-African American GFR(CKD) >90 (>60 ml/min/1.73 sqM); Potassium 3.9 mmol/L (3.5-5.1); Sodium 143 mmol/L (137-145); Total Bilirubin 0.4 mg/dL (0.2-1.3); Total Protein 6.1 g/dL (6.3-8.2)
[2023-06-30] MEDS: ONDANSETRON 4 MG/2 ML VIAL IVP SCH ×2 (11:47→17:29)
[2023-06-30] MEDS: NEOMYCIN 500 MG TAB PO SCH ×3 (13:22→23:00)
[2023-06-30] MEDS: metroNIDAZOLE 500 MG TAB PO SCH ×3 (13:22→23:00)
[2023-06-30] MEDS ORDERED: TEMAZEPAM 15 MG CAP PO ONE (21:00)
[2023-07-01] MEDS: ONDANSETRON 4 MG/2 ML VIAL IVP SCH ×4 (03:16→18:31)
[2023-07-01] MEDS ORDERED: metroNIDAZOLE-NS PMX 500 MG in SALINE 1 100ML.BAG IVPB PRN (05:00)
[2023-07-01] MEDS: LACTATED RINGERS 1,000 ML IV SCH ×2 (06:11→14:34)
[2023-07-01] MEDS ORDERED: ONDANSETRON 4 MG/2 ML VIAL IVP ONE (06:35)
[2023-07-01] MEDS ORDERED: DEXAMETHASONE SOD PHOSPHATE 4 MG/ML 1 ML VIAL IVP ONE (06:36)
[2023-07-01] MEDS: D5-0.45% NACL WITH KCL 20MEQ/L 1,000 ML IV SCH ×2 (06:49→21:04)
[2023-07-01] MEDS ORDERED: ALVIMOPAN 12 MG CAPSULE PO PRN (07:00)
[2023-07-01] MEDS ORDERED: MELOXICAM 7.5 MG TAB PO PRN (07:00)
[2023-07-01] MEDS ORDERED: ACETAMINOPHEN TAB 500 MG TAB PO PRN (07:00)
[2023-07-01 07:41] LABS: Basophils % (A) 1 %; Eosinophils # (A) 0.2 k/uL (0-0.7); Eosinophils % (A) 3 %; HCT 39.4 % (34.0-46.0); HGB 13.5 gm/dL (11.4-16.0); Lymphocytes % (A) 34 %; MCH 31.6 pg (25.0-35.0); MCHC 34.2 g/dL (31.0-37.0); MCV 92.4 fL (80.0-100.0); Mean Platelet Volume 7.6; Monocytes # (A) 0.3 k/uL (0-1.0); Monocytes % (A) 5 %; Neutrophils # (A) 3.2 k/uL (1.3-7.7); Neutrophils % (A) 56 %; Platelet Count 274 k/uL (150-450); RBC 4.27 m/uL (3.80-5.40); RDW 12.3 % (11.5-15.5); WBC 5.7 k/uL (3.8-10.6)
[2023-07-01 07:50] LABS: African American GFR (CKD) >90 (>60 ml/min/1.73 sqM); Anion Gap 13 mmol/L; Blood Urea Nitrogen 9 mg/dL (7-17); Calcium 9.2 mg/dL (8.4-10.2); Carbon Dioxide 20 mmol/L (22-30); Chloride 109 mmol/L (98-107); Glucose 94 mg/dL (74-99); Non-African American GFR(CKD) >90 (>60 ml/min/1.73 sqM); Sodium 142 mmol/L (137-145)
[2023-07-01] MEDS ORDERED: MIDAZOLAM 2 MG/2 ML VIAL IVP ONE (07:50)
[2023-07-01] MEDS ORDERED: fentaNYL (PF) 50 MCG/ML 2 ML AMP IVP ONE (07:51)
[2023-07-01] MEDS ORDERED: HEPARIN SODIUM,PORCINE 5,000 UNIT/ML 1 ML VIAL SQ PRN (08:01)
[2023-07-01 08:03] LABS: Potassium 4.1 mmol/L (3.5-5.1)
[2023-07-01] MEDS ORDERED: ROCURONIUM 10 MG/ML (5 ML VIAL) IV ONE (08:10)
[2023-07-01] MEDS ORDERED: ROPIVACAINE 5 MG/ML 30 ML VIAL ONE (08:10)
[2023-07-01] MEDS ORDERED: SODIUM CHLORIDE 0.9% (PF) 10 ML VIAL ONE (08:10)
[2023-07-01] MEDS ORDERED: fentaNYL (PF) 50 MCG/ML 2 ML AMP ONE (08:10)
[2023-07-01] MEDS ORDERED: PROPOFOL 10 MG/ML 20 ML VIAL IV ONE (08:10)
[2023-07-01] MEDS ORDERED: NEOSTIGMINE 1 MG/ML 10 ML VIAL ONE (08:10)
[2023-07-01] MEDS ORDERED: LIDOCAINE 1% INJ 10MG/ML (20 ML MDV) ONE (08:10)
[2023-07-01] MEDS ORDERED: HYDROmorphone (PF) 1 MG/ML ONE (08:10)
[2023-07-01] MEDS ORDERED: SUCCINYLCHOLINE CHLORIDE 200 MG/10 ML VIAL IV ONE (08:10)
[2023-07-01] MEDS ORDERED: GLYCOPYRROLATE 0.2 MG/ML 2 ML VIAL ONE (08:10)
[2023-07-01] MEDS ORDERED: MIDAZOLAM 2 MG/2 ML VIAL ONE (08:10)
[2023-07-01] MEDS ORDERED: LIDOCAINE 1%-EPI 1:100,000 50 ML VIAL SQ ONE (08:51)
[2023-07-01] MEDS ORDERED: LACTATED RINGERS 1,000 ML IV ONE (09:54)
--- NOTE | 2023-07-01 11:00 | P.ANPRN ---
Procedure Note - Anesthesia - Nerve Block Performed Bilateral Erector Spinae Single Time Out Performed: Yes (0750) Date of Procedure: 07/01/23 Procedure Start Time: 07:51 Procedure Stop Time: 07:55 Location of Patient: PreOp Indication: Acute Post-Operative Pain, Requested by Surgeon Specifically requested for management of pain by : Maria Guadalupe Murillo Sedation Type: Sedate with meaningful contact maintained Preparation: Sterile Prep Position: Sitting Catheter: None Needle Types: Pajunk Needle Gauge: 21 Ultrasound used to visualize needle placement: Yes Ultrasound used to observe medication spread: Yes Injectate: 0.5% Ropivacaine (see comment for volume) (15cc + 10cc nacl pf each side) Blood Aspirated: No Pain Paresthesia on Injection Noted: No Resistance on Injection: Normal Image Stored and Saved: Yes Events: Uneventful and Well Tolerated
[2023-07-01] MEDS ORDERED: HYDROmorphone 0.5 MG/0.5 ML SYRINGE IVP ONE ×3 (11:27→11:56)
[2023-07-01] MEDS ORDERED: SODIUM CHLORIDE 0.9% 1,000 ML IV ONE (12:34)
[2023-07-01] MEDS ORDERED: NALOXONE 0.4 MG/ML 1 ML VIAL IV PRN (12:35)
[2023-07-01] MEDS ORDERED: METOCLOPRAMIDE 5 MG/ML 2 ML VIAL IVP PRN (12:37)
[2023-07-01] MEDS ORDERED: BENZOCAINE/MENTHOL LOZENG 1 EACH LOZENGE MUCOUS MEM PRN (12:37)
--- NOTE | 2023-07-01 12:43 | P.OP ---
Date of Procedure: 07/01/23 Description of Procedure: SURGEON: AGUSTIN BARKER MD PREOPERATIVE DIAGNOSES: 1. Sigmoid diverticulitis 2. Hypertensive heart disease 3. Morbid obesity due to excess calories, BMI 38.0 POSTOPERATIVE DIAGNOSES: 1. Sigmoid diverticulitis, chronic 2. Hypertensive heart disease 3. Hyperlipidemia 4. Pelvic adhesions OPERATION: 1. Robotic-assisted daVinci Xi sigmoid colectomy with low anterior resection using 29 mm Ethicon powered stapler 2. Robotic-assisted daVinci Xi laparoscopic lysis of adhesions over 30 minutes 3. Intraoperative colonoscopy used for sigmoidoscopy Anesthesia: GETA, local, regional Estimated Blood Loss (ml): 30 Pathology: 1. Sigmoid colon 2. EEA donuts 3. Proximal colotomy Condition: stable Disposition: floor COMPLICATIONS: None. Operative Findings: 1. Pelvic adhesions involving sigmoid colon acute on chronic diverticulitis requiring over 30 minutes lysing adhesions 2. Anastomosis with EEA stapler 29 mm 3. No tension or torsion along the anastomosis 4. Doughnuts thick and both sides and viable 5. Negative leak test with viable anastomosis. INDICATIONS: The patient is a 62-year-old female who presents with chronic abdominal pain from diverticulitis. She had prior to the colonoscopy with findings of diverticulosis including intermittent volvulus. Benefits and risks of surgical intervention was described in detail including infection, injury to the ureter, colostomy creation, possibility for additional surgery was discussed at length. Informed consent was obtained. All questions of the patient and family were answered. DESCRIPTION: Earlier the patient had undergone a bowel prep using the enhanced colon recovery program. The patient was transferred to the operating room and placed supine. After general induction, the abdomen was prepped and draped in standard sterile fashion. Ioban was placed along the abdomen to minimize any contamination of skin floor. A Gonzalez catheter was placed. After a timeout protocol was performed, attention was then brought to the left upper quadrant whereby a 0 degree 5 mm laparoscopic trocar entry was performed. The abdominal cavity was entered and insufflated to 15 mmHg pressure, which was tolerated well. Diagnostic laparoscopy confirmed moderately redundant sigmoid colon and active sigmoid volvulus. The small bowel was unremarkable. Next a robotic 12-mm trocar was placed along the right lateral abdominal wall 20 cm superior from the pelvis. Two 8 mm ports were placed along the upper abdomen. Ports were placed 10 cm apart from each other including 20 cm away from the target anatomy of the left pelvis. The 12-mm port was exchanged for an 8 mm robotic port at the left upper quadrant. The robot was docked along the left lateral abdomen. The patient was positioned in steep Trendelenburg position at 21-degrees. Using atraumatic graspers and vessel sealer, the robotic system was docked and primed as described. Instruments were interchanged by the librarian assistant including hook cautery, needle wedding transportation driver, robotic stapler and vessel sealer. The robot stapler was prepared along the right lateral abdominal wall. The stapler 12-mm port was arranged along the right lateral abdominal wall. Next, attention was brought to identify the sigmoid colon. A stay suture using 3- 0 silk was placed along the anterior serosa of the redundant sigmoid colon. The sigmoid mesentery was mobilized using a vessel sealer whereby the descending colon was marked and tagged. Moderate pelvic adhesions involving the pelvic sidewalls and adhesion to the right ovary and fallopian tube were dressed using vessel sealer blunt dissection. The left fallopian tube and moderate adhesions and was also bluntly dissected. Using multiple fires of the robot stapler 60 mm black load, the proximal sigmoid colon was divided. The mesentery of the sigmoid colon was mobilized towards the pelvic brim and sacral promontory using a vessel sealer. Next, the sigmoid colon was divided using the robotic stapler 60 mm black staple loads. The rest of the sigmoid colon mesentery was mobilized using vessel sealer. Additionally, the sigmoid colon was mobilized onto the colon to minimize injury to the ureters. I went to the foot of the [facility] to confirm sizers and placement of 29-mm Ethicon powered stapler. I re-scrubbed into the case. The robotic arms were temporarily undocked. A 29-mm anvil was placed with a 3-0 silk sutured at the tip of the anvil belly roller. Then the anvil was placed via the left upper quadrant 12 mm port. All robotic arms were re-docked. I went back to the console. The staple line was opened using cautery. The anvil was entered into the proximal descending colon. The colotomy was closed using 60 mm green load. Next, the sharp tip of the anvil belly roller was brought through the staple line. The anvil belly roller was removed from the abdomen using empty clip appliers. I went to the foot of the bed to place the powered Ethicon 29 mm stapler via the rectum. The anvil and stapler were mated for 1 minute. The doughnuts were intact on both sides and thick. An intraoperative leak test was performed as I inserted the colonoscope to the anastomosis. Anastomosis at 15 cm from the anal verge was confirmed. Endoscopic images were obtained. Irrigation was placed in the pelvis and no air leaks were identified. Irrigation fluid was aspirated from the pelvis until dry. I went back to the console. All sponges and needles were removed from the abdominal cavity. The robot was undocked. I re-scrubbed into the case. Via the left upper quadrant port, the sigmoid colon was removed using 15 mm Endo Catch bag. All sponges were removed from the abdominal cavity. The left upper quadrant incision was widened to 3-cm. No contamination had occurred throughout the case. The fascial defect was oversewn using 0 Vicryl and a Rj Gutierrez. Next all pneumoperitoneum was evacuated from the abdominal cavity. The 8-mm trocar sites were reapproximated using 4-0 Monocryl in an interrupted subcuticular fashion. Local anesthetic was infiltrated to all wounds for postop analgesia. All incisions were also cleansed with diluted hydrogen peroxide. An advance silver surgical dressing Optifoam was placed over the colon extraction site. Liquid glue was applied to the rest of the skin incisions. The patient had tolerated the procedure well. The patient was extubated successfully. The patient was transferred to the postanesthesia care unit in stable condition. Intraoperative findings were described in detail to the patient's family.
[2023-07-01] MEDS ORDERED: NALOXONE 0.4 MG/ML 1 ML VIAL IV ONE (13:02)
[2023-07-01] MEDS: BISOPROLOL-HCTZ 10-6.25 MG 1 EACH TAB PO SCH (14:34)
[2023-07-01] MEDS ORDERED: ARTIFICIAL TEARS-HYPROMELLOSE DROPS 15 ML BTL LEFT EYE PRN (14:42)
[2023-07-01] MEDS: fentaNYL PCA 500 MCG/50 ML BAG IV SCH (15:09)
[2023-07-01] MEDS: KETOROLAC 15 MG/ML 1 ML VIAL IVP SCH ×2 (16:28→17:57)
[2023-07-01] MEDS: metroNIDAZOLE-NS PMX 500 MG in SALINE 1 100ML.BAG IVPB SCH (17:45)
[2023-07-01] MEDS: ACETAMINOPHEN IV (For NPO) 1,000 MG in EMPTY BAG 1 BAG IVPB SCH (17:57)
--- NOTE | 2023-07-01 18:02 | P.CON ---
Consult Note - . Consult date: 07/01/23 Assessment/Plan:: This is a 62 y/o female who underwent surgery today. On return began to experience discomfort and blurring of the vision in the left eye. she has a prior history of RK about 20 years ago. Va: 20/20, OD 20/30 OS w/ Rx EOM: full SLE: adnexa: normal conjunctiva: white and quiet OD, mild injection OS cornea: clear without staining OD, left with 20% superficial abrasion inferior: RK present OU AC: D&Q OU A: corneal abrasion OS P: apply topical antibiotic ointment, erythromycin, 4-6 times daily for 7 days. Recommend applying with side of finger, for the week. May use topical artificail tears multiple times daily for the next 2-3 months while the eye heals. Return to [facility] or [facility] for care when released.
[2023-07-01] MEDS: ERYTHROMYCIN 5 MG/GM OPHTH OINT 3.5 GM TUBE LEFT EYE SCH (18:31)
[2023-07-01] MEDS: HEPARIN SODIUM,PORCINE 5,000 UNIT/ML 1 ML VIAL SQ SCH (21:07)
[2023-07-02] MEDS: ACETAMINOPHEN IV (For NPO) 1,000 MG in EMPTY BAG 1 BAG IVPB SCH ×3 (00:18→14:02)
[2023-07-02] MEDS: KETOROLAC 15 MG/ML 1 ML VIAL IVP SCH ×4 (00:30→17:57)
[2023-07-02] MEDS: ERYTHROMYCIN 5 MG/GM OPHTH OINT 3.5 GM TUBE LEFT EYE SCH ×6 (00:33→20:10)
[2023-07-02] MEDS: ONDANSETRON 4 MG/2 ML VIAL IVP SCH ×4 (00:45→17:58)
[2023-07-02] MEDS: metroNIDAZOLE-NS PMX 500 MG in SALINE 1 100ML.BAG IVPB SCH ×3 (01:32→17:19)
[2023-07-02] MEDS: D5-0.45% NACL WITH KCL 20MEQ/L 1,000 ML IV SCH ×3 (06:40→20:19)
[2023-07-02 08:29] LABS: Basophils % (A) 0 %; Eosinophils # (A) 0.1 k/uL (0-0.7); Eosinophils % (A) 1 %; HCT 35.3 % (34.0-46.0); HGB 12.1 gm/dL (11.4-16.0); Lymphocytes # (A) 1.6 k/uL (1.0-4.8); Lymphocytes % (A) 21 %; MCH 31.6 pg (25.0-35.0); MCHC 34.2 g/dL (31.0-37.0); MCV 92.5 fL (80.0-100.0); Mean Platelet Volume 7.7; Monocytes # (A) 0.4 k/uL (0-1.0); Monocytes % (A) 5 %; Neutrophils # (A) 5.5 k/uL (1.3-7.7); Neutrophils % (A) 71 %; Platelet Count 282 k/uL (150-450); RBC 3.81 m/uL (3.80-5.40); RDW 12.3 % (11.5-15.5); WBC 7.8 k/uL (3.8-10.6)
[2023-07-02] MEDS: ALVIMOPAN 12 MG CAPSULE PO SCH ×2 (09:15→20:10)
[2023-07-02] MEDS: BISOPROLOL-HCTZ 10-6.25 MG 1 EACH TAB PO SCH (09:15)
[2023-07-02] MEDS: HEPARIN SODIUM,PORCINE 5,000 UNIT/ML 1 ML VIAL SQ SCH ×3 (09:15→20:10)
[2023-07-02 09:23] LABS: African American GFR (CKD) >90 (>60 ml/min/1.73 sqM); Anion Gap 10 mmol/L; Blood Urea Nitrogen 7 mg/dL (7-17); Calcium 8.5 mg/dL (8.4-10.2); Carbon Dioxide 21 mmol/L (22-30); Chloride 105 mmol/L (98-107); Glucose 102 mg/dL (74-99); Non-African American GFR(CKD) >90 (>60 ml/min/1.73 sqM); Sodium 136 mmol/L (137-145)
[2023-07-02] MEDS: LACTATED RINGERS 1,000 ML IV SCH (10:39)
--- NOTE | 2023-07-02 11:39 | P.PN ---
Progress Note - Text Patient's postoperative #1 from a sigmoid colectomy. She's doing relatively well however her pain is still somewhat uncontrolled. She is tolerating clears. We'll monitor her overnight.
[2023-07-02] MEDS: fentaNYL PCA 500 MCG/50 ML BAG IV SCH (17:58)
[2023-07-02] MEDS: HYDROmorphone 1 MG/ML 1 ML SYRINGE IVP PRN (20:10)
[2023-07-03] MEDS: KETOROLAC 15 MG/ML 1 ML VIAL IVP SCH ×3 (00:21→13:09)
[2023-07-03] MEDS: metroNIDAZOLE-NS PMX 500 MG in SALINE 1 100ML.BAG IVPB SCH ×2 (00:21→10:20)
[2023-07-03] MEDS: ONDANSETRON 4 MG/2 ML VIAL IVP SCH ×3 (00:22→13:10)
[2023-07-03] MEDS: ERYTHROMYCIN 5 MG/GM OPHTH OINT 3.5 GM TUBE LEFT EYE SCH ×4 (00:22→13:10)
[2023-07-03] MEDS: D5-0.45% NACL WITH KCL 20MEQ/L 1,000 ML IV SCH (06:51)
[2023-07-03] MEDS: LACTATED RINGERS 1,000 ML IV SCH (06:51)
[2023-07-03] MEDS: ALVIMOPAN 12 MG CAPSULE PO SCH (09:10)
[2023-07-03] MEDS: BISOPROLOL-HCTZ 10-6.25 MG 1 EACH TAB PO SCH (09:10)
[2023-07-03] MEDS: HEPARIN SODIUM,PORCINE 5,000 UNIT/ML 1 ML VIAL SQ SCH (09:10)
[2023-07-03] MEDS: HYDROmorphone 1 MG/ML 1 ML SYRINGE IVP PRN (09:19)
--- NOTE | 2023-07-03 14:37 | P.DS ---
Providers Date of admission: 06/30/23 08:03 Expected date of discharge: 07/03/23 Attending physician: Maria Guadalupe Murillo Consults: 07/01/23 16:26 Consult Physician Stat Consulting Provider: Gurinder Meier Consult Reason/Comments: Left eye irritation Do you want consulting provider notified?: Yes Primary care physician: Dre Cm Hospital Course: POSTOPERATIVE DIAGNOSES: 1. Sigmoid diverticulitis, chronic 2. Hypertensive heart disease 3. Hyperlipidemia 4. Pelvic adhesions COURSE: She had low anterior resection for diverticulitis. On awaking from, anesthesia, patient accidentally rubbed her eye and had corneal abrasion. Opthamology was consulted. She was tolerating diet and having bowel movements prior to discharge. Discharge diet and instructions reviewed. Procedures: OPERATION: 1. Robotic-assisted daVinci Xi sigmoid colectomy with low anterior resection using 29 mm Ethicon powered stapler 2. Robotic-assisted daVinci Xi laparoscopic lysis of adhesions over 30 minutes 3. Intraoperative colonoscopy used for sigmoidoscopy Anesthesia: GETA, local, regional Estimated Blood Loss (ml): 30 Pathology: 1. Sigmoid colon 2. EEA donuts 3. Proximal colotomy Condition: stable Disposition: floor COMPLICATIONS: None. Operative Findings: 1. Pelvic adhesions involving sigmoid colon acute on chronic diverticulitis requiring over 30 minutes lysing adhesions 2. Anastomosis with EEA stapler 29 mm 3. No tension or torsion along the anastomosis 4. Doughnuts thick and both sides and viable 5. Negative leak test with viable anastomosis. Patient Condition at Discharge: Stable Plan - Discharge Summary Discharge Rx Participant: Yes New Discharge Prescriptions: New Cyclobenzaprine [Flexeril] 10 mg PO TID #30 tab Ibuprofen [Motrin] 600 mg PO Q8HR PRN #30 tab PRN Reason: Pain Simethicone [Gas-X] 125 mg PO AC-TID PRN #20 capsule PRN Reason: Pain Acetaminophen Tab [Tylenol Tab] 1,000 mg PO Q6HR PRN #30 tablet PRN Reason: Pain Continue Bisoprolol-Hctz 10-6.25 mg [Ziac 10-6.25 MG] 1 tab PO QAM Discharge Medication List Bisoprolol-Hctz 10-6.25 mg [Ziac 10-6.25 MG] 1 tab PO QAM 05/08/20 [History] Acetaminophen Tab [Tylenol Tab] 1,000 mg PO Q6HR PRN #30 tablet 07/03/23 [Rx] Cyclobenzaprine [Flexeril] 10 mg PO TID #30 tab 07/03/23 [Rx] Ibuprofen [Motrin] 600 mg PO Q8HR PRN #30 tab 07/03/23 [Rx] Simethicone [Gas-X] 125 mg PO AC-TID PRN #20 capsule 07/03/23 [Rx] Follow up Appointment(s)/Referral(s): Gurinder Meier MD [STAFF PHYSICIAN] - 1 Week Maria Guadalupe Murillo MD [STAFF PHYSICIAN] - 07/05/23 5:00 pm (TELEHEALTH) Patient Instructions/Handouts: Diverticulitis (DC), Low Fiber Diet (DC), Diverticulitis Diet (GEN), Colectomy Diet (DC), Laparoscopic Bowel Resection (DC) Activity/Diet/Wound Care/Special Instructions: TELEHEALTH - DR CALLS YOU BETWEEN 8 am and 8 pm EXPECT BOWEL MOVEMENT WITH BLOOD FOR 1 WEEK TAKE LAXATIVE FOR CONSTIPATION AFTER 4 DAYS, 07/05/23 Wear abdominal binder for comfort. No lifting over 4 pounds in 4 weeks Aug 01November shower. No bath tub soaks for two weeks until Jul 15 Avoid steak, tough meats and seeds such as raspberry seeds. See diverticulitis, low fiber, colectomy diet Use Tylenol and ibuprofen scheduled for the next 24-48 hours for best pain relief. Use ice along incisions for today to prevent swelling. Discharge Disposition: HOME SELF-CARE
[2023-07-03 14:50] VITALS: BP 137/68; PULSE 65; RESP 17; TEMP 98.1
== END 2023-07-03 15:26 | disposition home or self-care (01) | DRG 329 ==
LOC: ORWHC2ENDO 06:52 → 4SSUR 08:02 → ORWHC2ENDO 08:03 → 4SSUR 08:03
PROVIDERS: ADMIT Surgery Plastic and Reconstructive Surgery; ATTEND Surgery Plastic and Reconstructive Surgery
PROC: 0DJD8ZZ Inspection of Lower Intestinal Tract, Via Natural or Artificial Opening Endoscopic (ICD-10-PCS; 2023-06-30)
PROC: 0DNU4ZZ Release Omentum, Percutaneous Endoscopic Approach (ICD-10-PCS; principal; 2023-07-01 07:30)
PROC: 0UN64ZZ Release Left Fallopian Tube, Percutaneous Endoscopic Approach (ICD-10-PCS; principal; 2023-07-01 07:30)
PROC: 8E0W4CZ Robotic Assisted Procedure of Trunk Region, Percutaneous Endoscopic Approach (ICD-10-PCS; principal; 2023-07-01 07:30)
PROC: 0DTN4ZZ Resection of Sigmoid Colon, Percutaneous Endoscopic Approach (ICD-10-PCS; principal; 2023-07-01 07:30)
DX: K57.32 Diverticulitis of large intestine without perforation or abscess without bleeding (principal); K56.2 Volvulus; I11.9 Hypertensive heart disease without heart failure; E66.01 Morbid (severe) obesity due to excess calories; S05.02XA Injury of conjunctiva and corneal abrasion without foreign body, left eye, initial encounter; N73.6 Female pelvic peritoneal adhesions (postinfective); K64.2 Third degree hemorrhoids; Z28.310 Unvaccinated for COVID-19; E78.5 Hyperlipidemia, unspecified; K59.09 Other constipation; G89.29 Other chronic pain; F41.9 Anxiety disorder, unspecified; Z68.38 Body mass index [BMI] 38.0-38.9, adult; Z79.899 Other long term (current) drug therapy; Z88.5 Allergy status to narcotic agent
CPT/HCPCS: 45378; 64999; 80048; 80053; 85025; 88307; 94760

== ENCOUNTER → 2024-01-20 | Outpatient (CLI) | payer BC ==
[2024-01-20 15:02] VITALS: BP 185/83; PULSE 69; RESP 16; TEMP 97.9
--- NOTE | 2024-01-20 15:26 | P.GSCN ---
History of Present Illness Consult date: 01/20/24 Reason for Consult: breast cyst Requesting physician: Dre Cm History of present illness: Emely is a 63 year old female seen in consultation for Dr. Cm regarding breast cyst. She had a bilateral mammogram on 05-05-23 which led to a right breast ultrasound on 06-13-23. The findings were of 0.5 by 0.6 cm mass at 12 oclock. Repeat right breast ultrasound in 6 months recommended. This was done on 11-23-23 which showed a lesion 0.6 cm at 12 oclock felt to be stable. Repeat mammogram recommended of the right breast in 6 months. She wants to have this area further evaluated. She does not feel anything in either breast. She has never had any surgery on her breast. She is not complaining of any recent trauma or infection in the breast. She is not complaining of any nipple discharge or skin changes. The patient right now is dealing with 3 close friends with cancer. 1 is of brain cancer probable metastatic from the lung, a second has brain cancer and has been given 2 years to live, and his [id number] is being treated for breast cancer. Caffeine: occasional nicotine:none chocolate:occasional BCP: used for about 1 year hormones: none Family History: paternal aunt: breast cancer Hormonal History: menarche: 13 , breast fed: no, age at first : 22 menopause: 49 Surgical History: gallbladder Maximus surgery colon resection for diverticular disease bilateral foot surgery planter fasciitis tonsil Medical History: HTN Social History: Nicotine: Negative Alcohol: Negative Drugs: Negative Review of Systems - Constitutional Denies fever, Denies weight loss - EENT Eyes: denies blurred vision Ears: deny: decreased hearing, tinnitus Ears, nose, mouth and throat: Reports headache, Denies dysphagia - Breasts bilateral: as per HPI - Cardiovascular Denies chest pain, Denies shortness of breath - Respiratory Denies cough, Denies 7 - Gastrointestinal Reports as per HPI, Reports constipation - Genitourinary Genitourinary: Denies dysuria, Denies hematuria Menstruation: Reports postmenopausal - Musculoskeletal Reports as per HPI - Integumentary Denies rash - Neurological Reports headaches, Denies syncope - Psychiatric Reports as per HPI - Endocrine Reports as per HPI - Hematologic/Lymphatic Reports easy bruising Hematologic/Lymphatic Comment(s): takes aspirin daily - Allergic/Immunologic Reports as per HPI Past Medical History Past Medical History: Hypertension Additional Past Medical History / Comment(s): Pt thinks possible hemorrhoid/small amount bleeding. Diverticulitis, migraines. History of Any Multi-Drug Resistant Organisms: None Reported Past Surgical History: Cholecystectomy, Hysterectomy, Tonsillectomy Additional Past Surgical History / Comment(s): REZA FOOT SURG 06/2015. COL ONOSCOPY, EGD, Giovanna fundoplasty. Past Anesthesia/Blood Transfusion Reactions: No Reported Reaction Additional Past Anesthesia/Blood Transfusion Reaction / Comm: Pt has never received blood. Past Psychological History: Anxiety Additional Psychological History / Comment(s): Pt resides with spouse. Smoking Status: Never smoker Past Alcohol Use History: None Reported Past Drug Use History: None Reported - Past Family History Sister(s) Family Medical History: Cancer, CVA/TIA Mother Family Medical History: No Reported History Medications and Allergies Home Medications Medication Instructions Recorded Confirmed Type Bisoprolol-Hctz 10-6.25 mg [Ziac 1 tab PO QAM 05/08/20 01/20/24 History 10-6.25 MG] Ibuprofen [Motrin] 600 mg PO Q8HR PRN #30 tab 07/03/23 01/20/24 Rx Simethicone [Gas-X] 125 mg PO AC-TID PRN #20 capsule 07/03/23 01/20/24 Rx Allergies Allergy/AdvReac Type Severity Reaction Status Date / Time morphine AdvReac Nausea & Verified 01/20/24 14:58 Vomiting Surgical - Exam Vital Signs Temp Pulse Resp BP Pulse Ox 97.9 F 69 16 185/83 99 01/20/24 14:59 01/20/24 14:59 01/20/24 14:59 01/20/24 14:59 01/20/24 14:59 - General no distress - Eyes normal ocular movement - ENT no hearing loss - Neck trachea midline - Respiratory normal respiratory effort, clear to auscultation - Cardiovascular Rhythm: regular Heart Sounds: normal: S1, S2 - Integumentary normal turgor - Neurologic no disoriented, no combative - Musculoskeletal normal gait - Psychiatric oriented to time, oriented to person, oriented to place, speech is normal, memory intact Breast Exam: BRA: 38DD inspection: Bilateral grade 3 ptosis Palpation: Right breast: Multi positional exam no dominant masses or nodules of concern, particular attention to the 12:00 area approximately 5 cm from the nipple does not reveal any palpable mass Right axilla: No adenopathy of concern Left breast: Multi positional exam no dominant masses or nodules of concern Left axilla: No adenopathy of concern Results Mammogram and ultrasound results reviewed although the radiographs are not yet available to us Assessment and Plan Assessment: Impression: Radiographic abnormality right breast 12:00 6 mm nodule which is stable and condition and felt to be most likely benign repeat radiograph in 6 months recommended Plan: Obtain radiographs to review the area of nodularity and further recommendation to follow this CC: Dre Cm
== END ==
LOC: WWCWWP 13:43
PROVIDERS: ATTEND Surgery
DX: N60.01 Solitary cyst of right breast (principal); Z80.3 Family history of malignant neoplasm of breast; Z88.5 Allergy status to narcotic agent

== ENCOUNTER → 2024-02-08 | Day surgery (SDC) | payer BC ==
--- NOTE | 2024-03-07 09:57 | MM ---
Reason for Exam: Post Procedure Mammogram. Last mammogram was performed 13 year(s) and 9 month(s) ago. Patient History: Menarche at age 12. First Full-Term at age 20. Hysterectomy at age 44. Maternal aunt had breast cancer. Risk Values: Jessica 5 year model risk: 1.4%. NCI Lifetime model risk: 5.8%. Prior Study Comparison: 06/17/2004 Screening Mammogram, [facility]. 04/26/2006 Screening Mammogram, [facility]. 04/29/2010 Bilateral Screening Mammogram, [facility]. Tissue Density: Right: The breasts are heterogeneously dense, which may obscure small masses. Pathology Description: Location: 12 o'clock. The ultrasound guided cyst aspiration procedure was explained to the patient. The risks, benefits, alternatives were discussed. An informed consent was then obtained. A time out was performed at . The patient was placed in supine positioning for imaging and for the procedure. The overlying skin was prepped with betadine and sterilely draped in usual sterile fashion. 10 ml 1% lidocaine was used as anesthetic into the skin and deeper breast tissue up to area of concern in the right 12:00 position 5 cm from the nipple. Under ultrasound guidance, an 18-gauge needle was advanced into the cyst and aspiration yielded .5 mL of clear fluid. The fluid was labeled and sent for laboratory analysis. A microclip marker was left in lesion. Good hemostasis was obtained with direct pressure. Postprocedure mammogram: The patient was transferred to mammography for physician ordered post procedure mammogram for clip placement verification. The clip is in the expected region of the biopsy. The patient tolerated the procedure well without any immediate complication. The patient was discharged to home in stable condition. Impression: Successful ultrasound guided cyst aspiration right 12:00 breast. Cytology pending. Pathology Results: Result: Benign, Benign cyst with blood. Pathology and radiology were reviewed. Findings are concordant. RIGHT BREAST, TWELVE O'CLOCK POSITION, NEEDLE ASPIRATION: Limited hypocellular non-diagnostic specimen with scattered red blood cells. Overall Assessment: Benign Assessment: MG diagnostic mammo RT wo CAD - Right: Benign, BI-RAD 2. Management: Diagnostic Mammogram of the right breast in 6 months. Electronically signed and approved by: Adriano Wen M.D. Radiologis
== END ==
LOC: RADUSWWP 12:32
PROVIDERS: ATTEND Surgery
DX: R92.8 Other abnormal and inconclusive findings on diagnostic imaging of breast (principal)
CPT/HCPCS: 88305; 77065; 76942; 19000; A4648

== ENCOUNTER → 2024-03-16 | Outpatient (CLI) | payer BC ==
[2024-03-16 14:23] VITALS: BP 166/88; PULSE 91; RESP 16; TEMP 98.4
--- NOTE | 2024-03-16 14:30 | P.PN ---
Subjective Progress Note Date: 03/16/24 Principal diagnosis: breast nodule right History of Present Illness Consult date: 01/20/24 Reason for Consult: breast cyst Requesting physician: Dre Cm History of present illness: Emely is a 63 year old female seen in consultation for Dr. Cm regarding breast cyst. She had a bilateral mammogram on 05-05-23 which led to a right breast ultrasound on 06-13-23. The findings were of 0.5 by 0.6 cm mass at 12 oclock. Repeat right breast ultrasound in 6 months recommended. This was done on 11-23-23 which showed a lesion 0.6 cm at 12 oclock felt to be stable. Repeat mammogram recommended of the right breast in 6 months. She wants to have this area further evaluated. She does not feel anything in either breast. She has never had any surgery on her breast. She is not complaining of any recent trauma or infection in the breast. She is not complaining of any nipple discharge or skin changes. The patient right now is dealing with 3 close friends with cancer. 1 is of brain cancer probable metastatic from the lung, a second has brain cancer and has been given 2 years to live, and his [id number] is being treated for breast cancer. 03-16-24 The patient was very concerned regarding the nodularity noted on mammogram in the right breast. Therefore it was reviewed with Dr. Rivas from radiology and attempt at a ultrasound-guided right core biopsy was performed. This was done on 02-08-2024. Pathology revealed limited hypocellular nondiagnostic specimen with scattered red blood cells. Bilateral macromastia and complains of bilateral shoulder pain as well as back pain. Shoulder notching related to the weight of her breast. Her bra size is 38 DDD. She is interested in bilateral reduction mammoplasty's. Caffeine: occasional nicotine:none chocolate:occasional BCP: used for about 1 year hormones: none Family History: paternal aunt: breast cancer Hormonal History: menarche: 13 , breast fed: no, age at first : 22 menopause: 49 Surgical History: gallbladder Maximus surgery colon resection for diverticular disease bilateral foot surgery planter fasciitis tonsil Medical History: HTN Social History: Nicotine: Negative Alcohol: Negative Drugs: Negative Review of Systems - Constitutional Denies fever, Denies weight loss - EENT Eyes: denies blurred vision Ears: deny: decreased hearing, tinnitus Ears, nose, mouth and throat: Reports headache, Denies dysphagia - Breasts bilateral: as per HPI - Cardiovascular Denies chest pain, Denies shortness of breath - Respiratory Denies cough, Denies 7 - Gastrointestinal Reports as per HPI, Reports constipation - Genitourinary Genitourinary: Denies dysuria, Denies hematuria Menstruation: Reports postmenopausal - Musculoskeletal Reports as per HPI - Integumentary Denies rash - Neurological Reports headaches, Denies syncope - Psychiatric Reports as per HPI - Endocrine Reports as per HPI - Hematologic/Lymphatic Reports easy bruising Hematologic/Lymphatic Comment(s): takes aspirin daily - Allergic/Immunologic Reports as per HPI Past Medical History Past Medical History: Hypertension Additional Past Medical History / Comment(s): Pt thinks possible hemorrhoid/s mall amount bleeding. Diverticulitis, migraines. History of Any Multi-Drug Resistant Organisms: None Reported Past Surgical History: Cholecystectomy, Hysterectomy, Tonsillectomy Additional Past Surgical History / Comment(s): REZA FOOT SURG 06/2015. COLONOSCOPY, EGD, Giovanna fundoplasty. Past Anesthesia/Blood Transfusion Reactions: No Reported Reaction Additional Past Anesthesia/Blood Transfusion Reaction / Comm: Pt has never received blood. Past Psychological History: Anxiety Additional Psychological History / Comment(s): Pt resides with spouse. Smoking Status: Never smoker Past Alcohol Use History: None Reported Past Drug Use History: None Reported - Past Family History Sister(s) Family Medical History: Cancer, CVA/TIA Mother Family Medical History: No Reported History Medications and Allergies Home Medications Medication Instructions Recorded Confirmed Type Bisoprolol-Hctz 10-6.25 mg [Ziac 1 tab PO QAM 05/08/20 01/20/24 History 10-6.25 MG] Ibuprofen [Motrin] 600 mg PO Q8HR PRN #30 tab 07/03/23 01/20/24 Rx Simethicone [Gas-X] 125 mg PO AC-TID PRN #20 capsule 07/03/23 01/20/24 Rx Allergies Allergy/AdvReac Type Severity Reaction Status Date / Time morphine AdvReac Nausea & Verified 01/20/24 14:58 Vomiting Objective - Constitutional General appearance: Present: cooperative - EENT Eyes: Present: EOMI ENT: Present: hearing grossly normal - Neck Neck: Present: normal ROM - Respiratory Respiratory: bilateral: CTA - Cardiovascular Heart sounds: normal: S1, S2 - Integumentary Integumentary: Present: normal turgor - Musculoskeletal Musculoskeletal: Present: gait normal - Psychiatric Psychiatric: Present: A&O x's 3, appropriate affect, intact judgment & insight - Additional findings Additional findings: Breast Exam: BRA: 38DD inspection: Bilateral grade 3 ptosis Palpation: Right breast: Multi positional exam no dominant masses or nodules of concern, particular attention to the 12:00 area approximately 5 cm from the nipple does not reveal any palpable mass Right axilla: No adenopathy of concern Left breast: Multi positional exam no dominant masses or nodules of concern Left axilla: No adenopathy of concern Assessment and Plan Assessment: Impression: Radiographic abnormality right breast 12:00 6 mm nodule which is stable and condition and felt to be most likely benign core biopsy was [id number]. This was a limited hypocellular nondiagnostic specimen Plan: Bilateral mammogram and right breast ultrasound in 6 months with examination at that time Patient to follow-up sooner any questions or concerns CC: Dre Cm
== END ==
LOC: WWCWWP 13:36
PROVIDERS: ATTEND Surgery
DX: N60.01 Solitary cyst of right breast (principal); N62 Hypertrophy of breast; N63.15 Unspecified lump in the right breast, overlapping quadrants; Z80.3 Family history of malignant neoplasm of breast; Z88.5 Allergy status to narcotic agent

== ENCOUNTER → 2024-09-14 | Outpatient (CLI) | payer MEDICARE ==
--- NOTE | 2024-09-14 13:22 | MM ---
Reason for Exam: Follow-up at short interval from prior study. Last mammogram was performed 1 year(s) and 5 month(s) ago. Patient History: Menarche at age 12. First Full-Term at age 20. Hysterectomy at age 44. 02/08/2024, Benign US breast aspiration single RT on the right side. Maternal aunt had breast cancer. Sister had breast cancer, age 67. Risk Values: Jessica 5 year model risk: 3.1%. NCI Lifetime model risk: 12.1%. Prior Study Comparison: 08/16/2000 Bilateral Screening Mammogram, [facility]. 06/17/2004 Screening Mammogram, [facility]. 04/26/2006 Screening Mammogram, [facility]. 04/29/2010 Bilateral Screening Mammogram, [facility]. Tissue Density: There are scattered areas of fibroglandular density. Findings: Analyzed By CAD. Microclip with associated nodule at 12:00 right breast at the site of previous benign cyst aspiration is redemonstrated. Asymmetric density superior left MLO view is unchanged. No significant change from prior exams. Overall Assessment: Benign, BI-RAD 2 Management: Screening Mammogram of both breasts in 1 year. Results were given to the patient verbally at the time of exam. See note below in regards to the patient's increased 5 year Jessica score Patient should continue monthly self-breast exams. A clinical breast exam by your physician is recommended on an annual basis. This exam should not preclude additional follow-up of suspicious palpable abnormalities. Note on Jessica scores and lifetime risk: 1. A Jessica score greater than 3% is considered moderate risk. If this is the case, consider specialist referral to assess eligibility for a risk reducing agent. 2. If overall lifetime risk for the development of breast cancer is 20% or higher, the patient may qualify for future screening with alternating mammogram and breast MRI. [facility], , 09/14/2024 1:19 PM. Electronically signed and approved by: Nicolas Holm M.D. Radiologist
== END | disposition home or self-care (01) ==
LOC: RADMAMWWP 12:40
PROVIDERS: ATTEND Surgery
DX: R92.8 Other abnormal and inconclusive findings on diagnostic imaging of breast (principal); R92.323 Mammographic fibroglandular density, bilateral breasts; Z80.3 Family history of malignant neoplasm of breast
CPT/HCPCS: 77062; 77066

== ENCOUNTER → 2024-10-15 | Outpatient (CLI) | payer MEDICARE ==
[2024-10-15 15:15] LABS: HCT 42.3 % (37.2-46.3); HGB 13.5 g/dL (12.0-15.0); MCH 30.3 pg (27.0-32.0); MCHC 31.9 g/dL (32.0-37.0); MCV 94.8 FL (80.0-97.0); Mean Platelet Volume 10.2 FL (9.5-12.2); NRBC Per 100 WBC 0 X 10*3/uL (0.00-0.01); Platelet Count 336 X 10*3/uL (140-440); RBC 4.46 X 10*6/uL (4.10-5.20); RDW 12.6 % (11.5-14.5); WBC 5.78 X 10*3/uL (4.50-10.00)
[2024-10-15 15:31] LABS: BUN/Creat Ratio 15.88 Ratio (12.00-20.00); Blood Urea Nitrogen 12.7 mg/dL (9.0-27.0); Calcium 9.7 mg/dL (8.7-10.3); Carbon Dioxide 29.6 mmol/L (21.6-31.8); Chloride 102 mmol/L (96-109); Chol/HDL Ratio 3.86 Ratio; Glucose 84 mg/dL (70-110); LDL Cholesterol,Calculated 130.4 mg/dL (0.0-131.0); Potassium 4.2 mmol/L (3.5-5.5); Sodium 142 mmol/L (135-145)
[2024-10-15 15:32] LABS: ALT 12 U/L (8-44); AST 19 U/L (13-35)
== END | disposition home or self-care (01) ==
LOC: LABWHC1 10:09
PROVIDERS: ATTEND Internal Medicine Cardiovascular Disease
DX: I10 Essential (primary) hypertension (principal); E78.2 Mixed hyperlipidemia
CPT/HCPCS: 36415; 80048; 80061; 84443; 84450; 84460; 85027